=== PATIENT | female | born 1975 | race Two or more races ===

== ENCOUNTER 2024-11-12 16:00 | Outpatient (REF) | payer MEDICAID, SELFPAY ==
--- OUTSIDE RECORDS SUMMARY | 2024-11-12 16:33 | XMS_ITS | Clinical Summary ---
Author Organization [employer] Address [address] [place] [address] [facility] [place] [address] Care Team Providers Care Engineering Specialist Name Role Phone Porsha Aavlos FARM MECHANIC APPRENTICE Primary Care Provider [phone] Allergies No known active allergies Medications No known medications Active Problems Problem Noted Date Diagnosed Date Adult wellness visit 11/12/2024 Astigmatism with presbyopia, bilateral Pinguecula, bilateral 08/06/2023 Encounters Date Type Department Care Team Description 11/12/2024 2:45 PM EDT Office Visit [facility] MEDICINE [address] [place] [phone] Porsha Avalos FNP Adult wellness visit (Primary Dx); Encounter for immunization 11/12/2024 Travel 11/11/2024 Telephone [facility] MEDICINE [address] [place] [phone] Porsha Avalos FNP CHART PREP 10/30/2024 Patient Outreach [facility] [address] [place] [address] Porsha Avalos FNP 10/30/2024 Patient Outreach [facility] [address] [place], [place] [phone] Marley Palomares MD Pre-visit Planning (SDOH unable to reach [facility]) 10/22/2024 Telephone [facility] MEDICINE [address] [place] [phone] Cooper Morejon MD 10/10/2024 3:00 PM EDT Office Visit [facility] ADULT DENTAL [address] [place] [phone] Sandoval-Forrest, Neema, DDS Dental caries (Primary Dx) 09/12/2024 3:00 PM EST Office Visit [facility] ADULT DENTAL [address] [place] [address] Sandoval-Forrest, Neema, DDS Fractured dental restorative material with loss of material (Primary Dx) 09/10/2024 3:00 PM EST Office Visit [facility] ADULT DENTAL [address] [place] [address] Sandoval-Forrest, Neema, DDS Dental caries (Primary Dx) 09/02/2024 2:30 PM EST Office Visit [facility] ADULT DENTAL [address] [place] [address] Lubna Aguilar 08/15/2024 9:30 AM EST Office Visit [facility] ADULT DENTAL [address] [place] [address] Sandoval-Forrest, Neema, DDS Dental caries (Primary Dx); Tipped teeth from Last 3 Months Immunizations Name Administration Dates Next Due Influenza injectable quadrivalent preservative f ree 05/27/2022 Pfizer Covid-19 Vaccine 12+ Bivalent 08/14/2021 Tdap 11/12/2024 Family History Medical History Relation Name Comments Hypertension Father Chorea Mother Relation Name Status Comments Father Mother Social History Tobacco Use Types Packs/Day Years Used Date Smoking Tobacco: Never Passive Smoke Exposure: Never Smokeless Tobacco: Never Tobacco Cessation:Counseling Given: Not Answered Alcohol Use Standard Drinks/Week Comments Not Currently 0 (1 standard drink = 0.6 oz pur e alcohol) Depression Answer Date Recorded Patient Health Questionnaire-9 Score 3 11/12/2024 Patient Health Questionnaire-9 Score 3 11/12/2024 Last PHQ-9: Questionnaire Data Not on file 0 11/12/2024 Housing Stability Answer Date Recorded What is your housing situation today? I have stuart kim 11/12/[address] you li ve. Do you have problems with any of the following? None of the above 11/12/2024 Food Insecurity Answer Date Recorded Within the past 12 months, y ou worried that your food would run out before you got money to buy more: Never True 11/12/2024 Within the past 12 months,th e food you bought just didn't last and you didn't have enough money to get more: Never True 01/2025 Transportation Answer Date Recorded In the past 12 months, has l ack of transportation kept you from medical appts, meetings, work or from getting things needed for daily living? No 11/12/2024 Utilities Answer Date Recorded In the past 12 months, has t he electric, gas, oil or water company threatened to shut off services in your home? No 11/12/2024 Depression Answer Date Recorded Patient Health Questionnaire-2 Score 0 11/12/2024 Internet Access Answer Date Recorded Internet Access Q1 Yes 11/12/2024 Internet Access Q2 Not on file 11/12/2024 Comments Unknown Sex and Gender Information Value Date Recorded Sex Assigned at Female 08/14/2023 8:42 AM EST Legal Sex Female 8:37 AM EST Gender Identity Female 08/14/2023 8:42 AM EST Sexual Orientation Straight 08/14/2023 8: 42 AM EST Last Filed Vital Signs Vital Sign Reading Time Taken Comments Blood Pressure 129/82 11/12/2024 2:51 PM EDT Pulse 67 11/12/2024 2:51 PM EDT Temperature 36.6 ??C (97.8 ??F) 11/12/2024 2:51 PM ED T Respiratory Rate 20 11/12/2024 2:51 PM EDT Oxygen Saturation 98% 11/12/2024 2:51 PM EDT Inhaled Oxygen Concentration - - Weight 71 kg (156 lb 8 oz) 11/12/2024 2:51 PM ED T Height 160.9 cm (5' 3.34 ) 11/12/2024 2:51 PM ED T Body Mass Index 27.43 11/12/2024 2:51 PM EDT Plan of Treatment Upcoming Encounters Date Type Department Care Team (Late st Contact Info) Description 11/14/2024 3:00 PM EDT Office Visit [facility] ADULT DENTAL [address] [place], [place] [phone] Neema Fountain, LETICIAS [address] [place] [address] Health Maintenance Due Date Last Done Comments CT Colonography 1976 Colonoscopy 1976 FIT DNA/Cologuard 1976 HIV Screening 1976 Sigmoidoscopy 1976 Family Planning (PISQ) 1991 Hepatitis C Screening 1994 Hepatitis B Vaccines (1 of 3 - 19+ 3-dose series) 1995 Pap Smear 1997 Cervical Cancer Screening 2006 HPV/Cotest 2006 Colorectal Cancer Screening 08/10/2023 FIT 08/10/2023 08/10/2022 FOBT 08/10/2023 08/10/2022 COVID-19 Vaccine (4 - 2023-2 5 season) 2024 05/27/2022, 08/14/2021, 12/23/2020 Influenza Vaccine (#1) 2024 05/27/2022 Dental Oral Exam 02/13/2025 08/15/2024 Dental Prophylaxis 03/03/2025 09/02/2024 Dental X-Ray: Bitewings 08/16/2025 08/15/19 25, 08/14/2023 Alcohol/Substance Use Screening 11/12/2025 11/12/2024 Depression Screening 11/12/2025 11/12/2024, 11/12/2024 SDOH Screening 11/12/2025 11/12/2024 Tobacco Screening 11/12/2025 11/12/2024 Mammogram 01/17/2026 01/18/2024 Zoster Vaccines (1 of 2) 2026 Dental X-Ray: Full Mouth 08/16/2027 08/15/2024 DTaP/Tdap/Td Vaccines (2 - T d or Tdap) 11/12/2034 11/12/2024 RSV Patients and Patients Aged 60 years or older (1 - 1-dose 75+ series) 2051 HIB Vaccines Aged Out No longer eligi ble based on patient's age to complete this topic HPV Vaccines Aged Out No longer eligi ble based on patient's age to complete this topic Hepatitis A Vaccines Aged Out No long er eligible based on patient's age to complete this topic IPV Vaccines Aged Out No longer eligi ble based on patient's age to complete this topic Meningococcal Vaccine Aged Out No kim saturnino eligible based on patient's age to complete this topic Pneumococcal Vaccine: Pediatrics (0 to 5 Years) and At-Risk Patients (6 to 49) Years) Aged Out No longer eligible b ased on patient's age to complete this topic RSV under 20 months Aged Out No longe r eligible based on patient's age to complete this topic Rotavirus Vaccines Aged Out No longer eligible based on patient's age to complete this topic Procedures Procedure Name Priority Date/Time Associated Diagnosis Comments CASE PRESENTATION, DETAILED AND EXTENSIVE TREATMENT PLANNING Routine 10/10/2024 3:00 PM EDT Dental caries 13 MOD RESIN-BASED COMPOSITE - 3 SURF, POSTERIOR Routine 10/10/2024 3:00 PM EDT Dental caries 12 DO RESIN-BASED COMPOSITE - 2 SURF, POSTERIOR Routine 10/10/2024 3:00 PM EDT Dental caries CASE PRESENTATION, DETAILED AND EXTENSIVE TREATMENT PLANNING Routine 09/12/2024 3:00 PM EST Fractured dental restorative material with loss of material 8 DIFL RESIN-BASED COMPOSITE - 4 OR MORE SURFACES (ANTERIOR) Routine 09/12/2024 3:00 PM EST Fractured dental restorative material with loss of material CASE PRESENTATION, DETAILED AND EXTENSIVE TREATMENT PLANNING Routine 09/10/2024 3:00 PM EST 28 MO RESIN-BASED COMPOSITE - 2 SURF, POSTERIOR Routine 09/10/2024 3:00 PM EST 29 DO RESIN-BASED COMPOSITE - 2 SURF, POSTERIOR Routine 09/10/2024 3:00 PM EST CASE PRESENTATION, DETAILED AND EXTENSIVE TREATMENT PLANNING Routine 09/02/2024 2:30 PM EST ORAL HYGIENE INSTRUCTIONS Routine 2024 2:30 PM EST COMPREHENSIVE PERIODONTAL EVALUATION - NEW OR ESTABLISHED PATIENT Routine 09/02/2024 2:30 PM EST PROPHYLAXIS - ADULT Routine 09/02/2024 2 :30 PM EST INTRAORAL - COMPLETE SERIES OF RADIOGRAPHIC IMAGES Routine 08/15/2024 9:30 AM EST Dental caries COMPREHENSIVE ORAL EVALUATION - NEW OR ESTABLISHED PATIENT Routine 08/15/2024 9:30 AM EST Dental caries 30 DO COMPOSITE FILLING Routine 08/15/19 12:00 AM EST 1 EXTRACTION Routine 08/15/2024 12:00 AM EST 19 PFM CROWN Routine 08/15/2024 12:00 AM EST 19 ENDODONTIC ENDOSSEOUS IMPLANT Routine 08/15/2024 12:00 AM EST 9 DL COMPOSITE FILLING Routine 12:00 AM EST 8 DL COMPOSITE FILLING Routine 02/07/202 5 12:00 AM EST 7 ML COMPOSITE FILLING Routine 5 12:00 AM EST 4 PFM CROWN Routine 08/15/2024 12:00 AM EST 5 EXTRACTION Routine 08/15/2024 12:00 AM EST 4 ENDODONTIC ENDOSSEOUS IMPLANT Routine 08/15/2024 12:00 AM EST from Last 3 Months Insurance [facility] LIMITED HS FULL DENTAL-[facility] MEDICAID LIMITED ADULT DENTAL - HSN FULL (MEDICAID) Care Teams Engineering Specialist Relationship Specialty Start Date End Date Porsha Avalos FNP [address] [place] [phone] PCP - General Family Medicine 11/12/24
--- OUTSIDE RECORDS SUMMARY | 2024-11-12 16:33 | XMS_ITS | Encounter Summary ---
Author Organization [employer] Address [address] [facility] 7t [place] [address] Care Team Providers Care Guest Attendant Name Role Phone Unavailable Primary Care Provider Unavailabl e Reason for Visit * Reason Onset Date Comments CHART PREP 11/11/2024 Encounter Details Date Type Department Care Team ([facility] st Contact Info) Description 11/11/[address] [facility] MEDICINE [address] [place] [address] Porsha Avalos FNP [address] [place] [address] CHART PREP Social History Tobacco Use Types Packs/Day Years Used Date Smoking Tobacco: Never Smokeless Tobacco: Never Alcohol Use Standard Drinks/Week Comments Not Currently [...] Orientation Straight 08/14/2023 8: 42 AM EST documented as of this encounter Miscellaneous Notes * Telephone Encounter - Felecia Álvarez [place] - 11/11/2024 10:28 AM EDT Chart Prep Labs: not applicable Images: not applicable Referrals: not applicable Vaccines due: Tdap and Hep B Screenings: colonoscopy, pap smear, and LMP Overdue care gaps: SBIRT, SDOH, PHQ-9, NEDRA-7, Oral health screening, and Disability screen documented in this encounter Plan of Treatment Upcoming Encounters Date Type Department Care Team (Late st Contact Info) Description 11/14/2024 3:00 PM EDT Office Visit [facility] ADULT DENTAL [address] [place] [address] Neema Fountain DDS [address] [place] [address] documented as of this encounter Visit Diagnoses Not on filedocumented in this encounter
--- OUTSIDE RECORDS SUMMARY | 2024-11-12 16:33 | XMS_ITS | Encounter Summary ---
Author Organization [employer] Address [address] [facility] 7t [place] [address] Care Team Providers Care Production Line Solderer Name Role Phone Porsha Avalos Primary Care Provider [phone] Reason for Referral * Consultation (Routine) - Authorized Specialty Diagnoses / Procedures Referred By Angie woodward Referred To Contact Optometry Diagnoses Adult wellness visit Porsha Avalos FNP [address] [place] [address] Phone: tel: fax: [facility] OPTOMETRY [address] [place] [address] Phone: tel: fax: Referral ID Status Reason Start Date Expiration Date Visits Requested Visits Authorized [id number] Authorized Consult and Treat 11/12/2024 11/12/2025 1 1 * Imaging (Routine) - Authorized Specialty Diagnoses / Procedures Referred By Angie woodward Referred To Contact Radiology Diagnoses Adult wellness visit Procedures BI Mammogram Screening Tomosynthesis Bilateral Porsha Avalos FNP [address] [place] [address] Phone: tel: fax: [facility] [address] [place], [place] Phone: tel: fax: Referral ID Status Reason Start Date Expiration Date V isits Requested Visits Authorized [id number] Authorized 11/12/2024 11/12/2025 1 1 Encounter Details Date Type Department Care Team (Late st Contact Info) Description 11/12/2024 2:45 PM EDT Office Visit [facility] MEDICINE [address] [place] [address] Porsha Avalos FNP [address] [place] [address] Adult wellness visit (Primary Dx); Encounter for immunization Social History Tobacco Use Types Packs/Day Years [...] AM EST documented as of this encounter Last Filed Vital Signs Vital Sign Reading [...] Mass Index 27.43 11/12/2024 2:51 PM EDT documented in this encounter Progress Notes * ONEIDA Chowdary - 11/12/2024 2:45 PM EDT Subjective: Nina Lopez is a 49 y.o. female who presents to the office for a transfer patient visit. Current concerns: None Patient Active Problem List Diagnosis Astigmatism with presbyopia, bilateral Pinguecula, bilateral History reviewed. No pertinent surgical history. Family History Problem Relation Name Age of Onset Chorea Mother Hypertension Father Social History Living situation: Lives with daughter in a house Safety:No fire arms in the home. Working smoke and fire alarm. Reports home and environment safe Employment/Education: Temporary employed in [place] [employer] Diet/exercise: Eats variety of food including fruits and vegetables. No routine exercise Substance use: Denies use of alcohol, drugs or cigarette Sexual activity: Yes, same partner x 25. Denies IPV Dental: Has a dental home Vision: Referral to [facility] vision Last menstrual period: 10/27/2024. Regular period no inter period bleeding Children: 1 Mammogram: Referral Pap smear: Reports Two years ago and normal Mental health: Denies SI, harming self or others No Known Allergies No current outpatient medications on file. No current facility-administered medications for this visit. Health Maintenance Topic Date Due Depression Screening Never done SDOH Screening Never done HIV Screening Never done Family Planning (PISQ) Never done Hepatitis C Screening Never done DTaP/Tdap/Td Vaccines (1 - Tdap) Never done Hepatitis B Vaccines (1 of 3 - 19+ 3-dose series) Never done Cervical Cancer Screening Never done Colorectal Cancer Screening 08/10/2023 Influenza Vaccine (1) 03/09/2024 COVID-19 Vaccine ( season) 2024 Tobacco Screening 11/12/2025 Alcohol/Substance Use Screening 11/12/2025 Mammogram 01/17/2026 Zoster Vaccines (1 of 2) 2026 RSV Patients and Patients Aged 60 years or older (1 - 1-dose 75+ series) 2051 RSV under 20 months Aged Out HIB Vaccines Aged Out IPV Vaccines Aged Out Hepatitis A Vaccines Aged Out Meningococcal Vaccine Aged Out Rotavirus Vaccines Aged Out HPV Vaccines Aged Out Pneumococcal Vaccine: Pediatrics (0 to 5 Years) and At-Risk Patients (6 to 49) Years) Aged Out Review of Systems Constitutional: Negative for activity change, appetite change, fatigue and fever. HENT: Negative for congestion, ear discharge, ear pain, rhinorrhea and sore throat. Eyes: Negative for discharge, redness and itching. Respiratory: Negative for cough, shortness of breath and wheezing. Cardiovascular: Negative for chest pain. Gastrointestinal: Negative for abdominal pain, blood in stool, constipation, diarrhea, nausea and vomiting. Endocrine: Negative for polydipsia and polyuria. Genitourinary: Negative for decreased urine volume, difficulty urinating, dyspareunia, hematuria and menstrual problem. Musculoskeletal: Negative for arthralgias, gait problem and joint swelling. Skin: Negative for rash. Allergic/Immunologic: Negative for environmental allergies and food allergies. Neurological: Negative for dizziness, weakness and headaches. Hematological: Does not bruise/bleed easily. Psychiatric/Behavioral: Negative for behavioral problems, sleep disturbance and suicidal ideas. Visit Vitals BP 129/82 (BP Location: Left arm, Patient Position: Sitting, BP Cuff Size: Adult) Pulse 67 Temp 97.8 ??F (36.6 ??C) (Temporal) Resp 20 Ht 5' 3.34 (1.609 m) Wt 156 lb 8 oz (71 kg) LMP 10/27/2024 (Exact Date) SpO2 98% BMI 27.43 kg/m?? Smoking Status Never BSA 1.78 m?? Physical Exam Constitutional: Appearance: Normal appearance. HENT: Head: Normocephalic and atraumatic. Right Ear: Tympanic membrane, ear canal and external ear normal. Left Ear: Tympanic membrane, ear canal and external ear normal. Nose: Nose normal. No congestion. Mouth/Throat: Mouth: Mucous membranes are moist. Pharynx: Oropharynx is clear. Eyes: Extraocular Movements: Extraocular movements intact. Pupils: Pupils are equal, round, and reactive to light. Cardiovascular: Rate and Rhythm: Normal rate and regular rhythm. Pulses: Normal pulses. Heart sounds: Normal heart sounds. No murmur heard. Pulmonary: Effort: Pulmonary effort is normal. Breath sounds: Normal breath sounds. No wheezing. Chest: Chest wall: No tenderness. Abdominal: General: Abdomen is flat. Bowel sounds are normal. Palpations: Abdomen is soft. Tenderness: There is no guarding or rebound. Musculoskeletal: General: Normal range of motion. Cervical back: Normal range of motion. Right lower leg: No edema. Left lower leg: No edema. Skin: General: Skin is warm and dry. Capillary Refill: Capillary refill takes less than 2 seconds. Findings: No bruising. Neurological: General: No focal deficit present. Mental Status: She is alert and oriented to person, place, and time. Cranial Nerves: No cranial nerve deficit. Sensory: No sensory deficit. Psychiatric: Mood and Affect: Mood normal. Behavior: Behavior normal. Thought Content: Thought content normal. Judgment: Judgment normal. Problem List Items Addressed This Visit Adult wellness visit - Primary Well nourished, alert and cooperative , good historian, and answering questions appropriately Plan Blood work order to screen for anemia, electrolytes, elevated blood sugar and lipid Ordered preventing screening for STIs No family hx of colon CA, colonoscopy / stool based tests deferred to 45 yrs Diet and exercise review Hep B lab work to determine presence of antigens or antibody Lifestyle and behavioral health assessment Patient education on vaccination and importance getting annual vaccines Follow up in one year or prn Relevant Orders CBC auto differential Hepatitis B Core Antibody, Total Hepatitis B surface antigen, EIA Hepatitis B Surface Antibody, Qualitative Hepatitis C Antibody with Reflex to HCV, RNA, Quantitative, Real-Time PCR Chlamydia/N. Gonorrhoeae RNA, TMA, Urogenitial HIV-1/2 Antigen and Antibodies, Fourth Generation, with Reflexes Comprehensive Metabolic Panel Lipid Panel, Standard Encounter for immunization Due for Tdap discussed with patient and administered Relevant Orders Tdap vaccine [facility] LUNCHROOM MOTHER Attestation LUNCHROOM MOTHER Resident Attestation: Patient was seen and evaluated by Porsha MOHAMUD, in collaboration with Yajaira Anthony MD who has reviewed my assessment and plan. I, Yajaira Anthony MD, have reviewed the resident's note and agree with the assessment & plan ofcare as documented above. Visit Conducted in: Kazakh Translation by: Provided by [employer] Phone Service ID # [id number] documented in this encounter Plan of Treatment Upcoming Encounters Date Type Department Care Team (Late st Contact Info) Description 11/14/2024 3:00 PM EDT Office Visit [facility] ADULT DENTAL [address] [place], [place] [phone] Sandoval-Forrest, Neema, DDS [address] [place], [place] [phone] Scheduled Orders Name Type Priority Associated Diagnoses Orde r Schedule CBC auto differential Lab Routine Adult wellness visit Expected: 11/12/2024 (Approximate), Expires: 11/11/2025 Hepatitis B Core Antibody, Total Lab Routine Adult wellness visit Expected: 11/12/2024 (Approximate), Expires: 11/11/2025 Hepatitis B surface antigen, EIA Lab Routine Adult wellness visit Expected: 11/12/2024 (Approximate), Expires: 11/11/2025 Hepatitis B Surface Antibody, Qualitative Lab Routine Adult wellness visit Expected: 11/12/2024 (Approximate), Expires: 11/11/2025 Hepatitis C Antibody with Reflex to HCV, RNA, Quantitative, Real-Time PCR Lab Routine Adult wellness visit Expected: 11/12/2024, Expires: 11/11/2025 Chlamydia/N. Gonorrhoeae RNA, TMA, Urogenitial Microbiology Routine Adult wellness visit Ordered: 11/12/2024 HIV-1/2 Antigen and Antibodies, Fourth Generation, with Reflexes Lab Routine Adult wellness visit Expected: 11/12/2024 (Approximate), Expires: 11/11/2025 Comprehensive Metabolic Panel Lab Routine Adult wellness visit Expected: 11/12/2024 (Approximate), Expires: 11/11/2025 Lipid Panel, Standard Lab Routine Adult wellness visit Expected: 11/12/2024 (Approximate), Expires: 11/11/2025 BI Mammogram Screening Tomosynthesis Bilateral Imaging Routine Adult wellness visit Expected: 11/12/2024 (Approximate), Expires: 01/12/2026 Scheduled Referrals Name Type Priority Associated Diagnoses Orde r Schedule Referral to [facility] Outpatient Referral Routine Adult wellness visit Expected: 11/12/2024 (Approximate), Expires: 11/12/2025 documented as of this encounter Visit Diagnoses Diagnosis Adult wellness visit- Primary Encounter for immunization documented in this encounter Additional Health Concerns Assessment Noted Time PHQ-9 Depression Total Score: 3 11/13/19 25 3:52 PM EDT documented as of this encounter Care Teams Production Line Solderer Relationship Specialty Start Date End Date Prosha Avalos FNP [address] [place] [phone] PCP - General Family Medicine 11/12/24 documented as of this encounter
--- OUTSIDE RECORDS SUMMARY | 2024-11-12 16:33 | XMS_ITS | Encounter Summary ---
Author Organization [employer] Address [address] [facility] [address]t [place] [address] Care Team Providers Care Accelerator Operator Name Role Phone Porsha Avalos APRON TRIMMER Primary Care Provider Encounter Details Date Type Department Care Team (Latest Contact Info) Description 11/12/2024 Travel Social History Tobacco Use Types Packs/Day Years Used Date Smoking Tobacco: Never Passive Smoke Exposure: Never Smokeless Tobacco: Never Alcohol Use Standard [...] AM EST documented as of this encounter Plan of Treatment Upcoming Encounters Date Type Department Care Team (Late st Contact Info) Description 11/14/2024 3:00 PM EDT Office Visit [facility] ADULT DENTAL [address] [place] [address] Neema Fountain DDS [address] [place] [address] documented as of this encounter Visit Diagnoses Not on filedocumented in this encounter Additional Health Concerns Assessment Noted Time PHQ-9 Depression Total Score: 3 11/13/19 25 3:52 PM EDT documented as of this encounter Care Teams Accelerator Operator Relationship Specialty Start Date End Date Porsha Avalos FNP [address] [place] [address] PCP - General Family Medicine 11/12/24 documented as of this encounter
[2024-11-12 18:07] LABS: MANUAL DIFF FLAG NO
[2024-11-12 18:19] LABS: Basophils Absolute Auto 0.1 X10*3/uL (0.0-0.2); Basophils Percent Auto 0.6 % (0-2); Eosinophils Absolute Auto 0.1 X10*3/uL (0.0-0.4); Eosinophils Percent Auto 0.9 % (0-4); Hematocrit 35.3 % (37.0-47.0); Hemoglobin 11.5 g/dl (12.0-16.0); Imm Gran Abs Auto 0.04 X10*3/uL (0.00-0.03); Imm Gran Pct Auto 0.4 % (0.0-0.4); Lymphocytes Absolute Auto 2.9 X10*3/uL (1.2-4.9); Lymphocytes Percent Auto 29.2 % (20-40); Mean Corpuscular HGB Conc 32.6 g/dl (31.0-35.0); Mean Corpuscular Hemoglobin 28.7 pg (27.0-33.0); Monocytes Absolute Auto 0.6 X10*3/uL (0.1-1.2); Monocytes Percent Auto 5.7 % (2-11); Neutrophils Absolute Auto 6.3 x10*3/uL (2.0-8.3); Neutrophils Percent Auto 63.2 % (45-73); Platelet Count 319 X10*3/uL (160-400); Red Blood Count 4.01 X10*6/uL (4.20-5.50); Red Cell Distribution Width 12.7 % (11.0-16.0)
[2024-11-12 18:33] LABS: Alanine Aminotransferase 16 U/L (0-31); Albumin Level 4.4 g/dL (3.5-5.0); Alkaline Phosphatase 55 U/L (39-117); Anion Gap 12 (12-20); Aspartate Amino Transferase 22 U/L (5-31); Bilirubin Total 0.4 mg/dL (0.0-1.0); Blood Urea Nitrogen 14 mg/dL (9-16); Calcium 9.7 mg/dL (8.4-10.2); Carbon Dioxide 24 mmol/L (22-29); Chloride 106 mmol/L (96-108); Cholesterol 186 mg/dL (<200); Estimated Glomerular Filt Rate > 60; Glucose Random 96 mg/dL (60-115); HDL Cholesterol 51 mg/dL (>40); LDL Cholesterol Calculated 114 mg/dL (<100); Sodium 138 mmol/L (135-145); Total Protein 7.3 g/dL (6.5-8.0); Triglycerides 107 mg/dL (<150)
[2024-11-12 22:52] LABS: CT PCR NOT DETECTED (Not Detect.); NG PCR NOT DETECTED (Not Detect.)
[2024-11-13 04:40] LABS: HBS Num1 > 1000.00 mIU/mL (0-7.99); HBc Num1 0.08 S/CO (0.00-0.79); HBsAGNum1 0.29 S/CO (0.00-0.99); HIV AB/AG Nonreactive (Nonreactive); HIV Num 1 0.05 S/CO (0.00-0.99); Hepatitis B Core Antibody Nonreactive (Nonreactive); Hepatitis B Surface Antigen Negative (Negative); ~HepC Num1 0.15 S/CO (0.00-0.79); ~Hepatitis B Surface Antibody REACTIVE (Nonreactive); ~Hepatitis C Antibody Nonreactive (Nonreactive)
== END 2024-11-12 16:01 | disposition home or self-care (01) ==
LOC: HO.HHCL 16:00
PROVIDERS: Visit Provider Nurse Practitioner Family
DX: Z00.00 Encounter for general adult medical examination without abnormal findings (principal); Z11.4 Encounter for screening for human immunodeficiency virus [HIV]; Z11.59 Encounter for screening for other viral diseases; Z13.220 Encounter for screening for lipoid disorders
CPT/HCPCS: 36415; 80053; 80061; 85025; 86704; 86706; 86803; 87340; 87389; 87491; 87591

== ENCOUNTER 2025-01-08 14:57 | Outpatient (REF) | payer MEDICAID, SELFPAY ==
--- OUTSIDE RECORDS SUMMARY | 2025-01-08 15:01 | XMS_ITS | Clinical Summary ---
Author Organization [facility] Address [address] [place] [address] 7 [place] [address] Care Team Providers Care Doctor Of Chiropractic Name Role Phone Porsha Avalos Primary Care Provider [phone] Allergies No known active allergies Medications No known medications Active Problems Problem Noted Date Diagnosed Date Adult wellness visit 11/12/2024 Astigmatism with presbyopia, bilateral Pinguecula, bilateral 08/06/2023 Encounters Date Type Department Care Team Description 12/17/2024 3:00 PM EDT Office Visit [facility] [address] [place] [phone] Sandoval-Forrest, Neema, DDS Dental caries (Primary Dx) 11/12/2024 2:45 PM EDT Office Visit [facility] [address] [place] [phone] Porsha Avalos FNP Adult wellness visit (Primary Dx); Encounter for immunization 11/12/2024 Travel 11/11/2024 Telephone [facility] [address] [place] [phone] Porsha Avalos FNP CHART PREP 10/30/2024 Patient Outreach [facility] [address] [place], [place] [phone] Porsha Avalos FNP 10/30/2024 Patient Outreach [facility] [address] [place], [place] [phone] Marley Palomares MD Pre-visit Planning (SDOH unable to reach [facility]) 10/22/2024 Telephone [facility] [address] [place] [address] [phone] Cooper oMrejon MD 10/10/2024 3:00 PM EDT Office Visit [facility] [address] [place] [phone] Neema Fountain DDS Dental caries (Primary Dx) from Last 3 Months Immunizations Immunization Administration Dates Next Due Influenza injectable quadrivalent [...] Sign Reading Time Taken Comments Blood Pressure 122/90 12/17/2024 3:05 PM EDT Pulse 67 11/12/2024 2:51 PM EDT Temperature 36.6 C (97.8 F) 11/12/2024 2:51 PM EDT Respiratory Rate 20 11/12/2024 2:51 PM EDT [...] Care Team (Late st Contact Info) Description 02/02/2025 3:00 PM EDT Office Visit [facility] [address] [place] [address] Neema Fountain, DDS [address] [place] [address] 02/18/2025 3:30 PM EDT Office Visit [facility] [address] [place] [address] TarkaCitlali, OD [address] [place] [address] Health Maintenance Due Date Last Done Comments CT Colonography 1976 Colonoscopy 1976 FIT DNA/Cologuard 1976 Sigmoidoscopy 1976 Family Planning (PISQ) 1991 Hepatitis B Vaccines (1 of 3 - 19+ 3-dose series) 1995 Pap Smear 1997 Cervical Cancer Screening 2006 HPV/Cotest 2006 Colorectal Cancer Screening 08/10/2023 FIT 08/10/2023 08/10/2022 FOBT 08/10/2023 08/10/2022 COVID-19 Vaccine (4 - 2023-2 5 season) 2024 05/27/2022, 08/14/2021, 12/23/2020 Dental Oral Exam 02/13/2025 08/15/2024 Dental Prophylaxis 03/03/2025 09/02/2024 Dental X-Ray: Bitewings 08/16/2025 08/15/19, 08/14/2023 Alcohol/Substance Use Screening 11/12/2025 11/12/2024 Depression Screening 11/12/2025 11/12/2024, 11/12/2024 Disability Screening 11/12/2025 11/12/2024 SDOH Screening 11/12/2025 11/12/2024 Tobacco Screening 12/17/2025 12/17/2024 Mammogram 01/17/2026 01/18/2024 Zoster Vaccines (1 of 2) 2026 Dental X-Ray: Full Mouth 08/16/2027 08/15/2024 DTaP/Tdap/Td Vaccines (2 - T d or Tdap) 11/12/2034 11/12/2024 RSV Patients and Patients Aged 60 years or older (1 - 1-dose 75+ series) 2051 Influenza Vaccine Completed 09/19/2024, 05/27/2022 HIV Screening Completed 11/12/2024 Hepatitis C Screening Completed 11/12/2024 HIB Vaccines Aged Out No longer eligi [...] patient's age to complete this topic Meningococcal B Vaccine Aged Out No l onger eligible based on patient's age to complete this topic Meningococcal Vaccine Aged Out No kim saturnino eligible based on patient's age to complete this topic Pneumococcal Vaccine: Pediatrics (0 to 5 Years) and At-Risk Patients (6 to 49) Years Aged Out No longer eligible b ased on patient's age to complete this topic RSV under 20 months Aged Out No longe r eligible based on patient's age to complete this topic Rotavirus Vaccines Aged Out No longer eligible based on patient's age to complete this topic Procedures Procedure Name Priority Date/Time Associated Diagnosis Comments CASE PRESENTATION, DETAILED AND EXTENSIVE TREATMENT PLANNING Routine 12/17/2024 3:00 PM EDT Dental caries 20 DO RESIN-BASED COMPOSITE - 2 SURF, POSTERIOR Routine 12/17/2024 3:00 PM EDT Dental caries 18 COURTNEY RESIN-BASED COMPOSITE - 2 SURF, POSTERIOR Routine 12/17/2024 3:00 PM EDT Dental caries LIPID PANEL, STANDARD Routine 11/12/2024 4:14 PM EDT Adult wellness visit COMPREHENSIVE METABOLIC PANEL Routine 11/12/2024 4:14 PM EDT Adult wellness visit HIV 1/2 ANTIGEN/ANTIBODY, FOURTH GENERATION W/RFL Routine 11/12/2024 4:14 PM EDT Adult wellness visit HEPATITIS C AB W/REFL TO HCV RNA, QN, PCR Routine 11/12/2024 4:14 PM EDT Adult wellness visit HEPATITIS B SURFACE ANTIBODY, QUALITATIVE Routine 11/12/2024 4:14 PM EDT Adult wellness visit HEPATITIS B SURFACE ANTIGEN, EIA Routine 11/12/2024 4:14 PM EDT Adult wellness visit HEPATITIS B CORE AB TOTAL Routine 11/12/2024 4:14 PM EDT Adult wellness visit CBC WITH AUTO DIFFERENTIAL Routine 11/12/2024 4:14 PM EDT Adult wellness visit CHLAMYDIA/N. GONORRHOEAE RNA, TMA, UROGENITAL Routine 11/12/2024 4:14 PM EDT Adult wellness visit CASE PRESENTATION, DETAILED AND EXTENSIVE TREATMENT PLANNING Routine 10/10/2024 3:00 PM EDT Dental caries 13 MOD RESIN-BASED COMPOSITE - 3 SURF, POSTERIOR Routine 10/10/2024 3:00 PM EDT Dental caries 12 DO RESIN-BASED COMPOSITE - 2 SURF, POSTERIOR Routine 10/10/2024 3:00 PM EDT Dental caries PROPHYLAXIS - ADULT Routine 09/02/2024 2 :30 PM EST INTRAORAL - COMPLETE SERIES OF RADIOGRAPHIC IMAGES Routine 08/15/2024 9:30 AM EST Dental caries COMPREHENSIVE ORAL EVALUATION - NEW OR ESTABLISHED PATIENT Routine 08/15/2024 9:30 AM EST Dental caries from Last 3 Months or Most Recently Relevant to Health Maintenance Results * (ABNORMAL) CBC auto differential (11/12/2024 4:14 PM EDT) White Blood Count 10.0 4.8 - 10.8 X10*3/uL [facility] Red Blood Count 4.01(L) 4.20 - 5.50 X10*6/uL [facility] Hemoglobin 11.5(L) 12.0 - 16.0 g/dl [facility] Hematocrit 35.3(L) 37.0 - 47.0 % [facility] Mean Corpuscular Volume 88.0 80.0 - 98.0 fL [facility] Mean Corpuscular Hemoglobin 28.7 27.0 - 33.0 pg [facility] Mean Corpuscular HGB Conc 32.6 31.0 - 35.0 g/dl [facility] Red Cell Distribution Width 12.7 11.0 - 16.0 % [facility] Platelet Count 319 160 - 400 X10*3/uL [facility] Mean Platelet Volume 11.0 9.4 - 12.3 fL [facility] Neutrophils Percent Auto 63.2 45 - 73 % [facility] Imm Gran Pct Auto 0.4 0.0 - 0.4 % [facility] Lymphocytes Percent Auto 29.2 20 - 40 % [facility] Monocytes Percent Auto 5.7 2 - 11 % [facility] Eosinophils Percent Auto 0.9 0 - 4 % [facility] Basophils Percent Auto 0.6 0 - 2 % [facility] NRBC Pct Auto 0.0 0.0 - 0.2 /100WBC [facility] Neutrophils Absolute Auto 6.3 2.0 - 8.3 x10*3/uL [facility] Imm Gran Abs Auto 0.04(H) 0.00 - 0.03 X10*3/uL [facility] Lymphocytes Absolute Auto 2.9 1.2 - 4.9 X10*3/uL [facility] Monocytes Absolute Auto 0.6 0.1 - 1.2 X10*3/uL [facility] Eosinophils Absolute Auto 0.1 0.0 - 0.4 X10*3/uL [facility] Basophils Absolute Auto 0.1 0.0 - 0.2 X10*3/uL [facility] NRBC Abs Auto 0.000 0.0 - 0.012 X10*3/uL [facility] Blood Venous blood specimen / Unknown 11/12/2024 4:14 PM EDT 11/12/2024 6:06 PM EDT [facility] Final Res ult Performing Organization Address [facility] Co de Phone Number [facility] [address] [place] [phone] * Hepatitis C Antibody with Reflex to HCV, RNA, Quantitative, Real-Time PCR (11/12/2024 4:14 PM EDT) [facility] Hepatitis C Antibody Nonreactive Nonreactive [facility] Comment:Antibodies to HCV no t detected; does not exclude early acuteHCV infection. Blood Venous blood specimen / Unknown 11/12/2024 4:14 PM EDT 11/12/2024 6:06 PM EDT [facility] Final Res ult Performing Organization Address [facility] de Phone Number [facility] [address] [place] [phone] * Chlamydia/N. Gonorrhoeae RNA, TMA, Urogenitial (11/12/2024 4:14 PM EDT) [facility] CT PCR NOT DETECTED Not Detect. [facility] Comment:A not detected test result does not exclude the possibilityof infection because test results can be affected byimproper specimen collection, concurrent antibiotic therapy,or the number of organisms in the specimen which may bebelow the sensitivity of the test. As with many diagnostictests, results from the Xpert CT/NG assay should beinterpreted in conjunction with other laboratory andclinical data available to the clinician.Xpert CT/NG performance has not been evaluated in patientsless than 14 years of age. The assay should not be used forthe evaluationof suspected sexual abuse or for other medico-legalindications. Additional testing is recommended in anycircumstance when false positive or false negative resultscould lead to adverse medical, social or psychologicalconsequences. NG PCR NOT DETECTED Not Detect. [facility] Comment:A not detected test result does not exclude the possibilityof infection because test results can be affected byimproper specimen collection, concurrent antibiotic therapy,or the number of organisms in the specimen which may bebelow the sensitivity of the test. As with many diagnostictests, results from the Xpert CT/NG assay should beinterpreted in conjunction with other laboratory andclinical data available to the clinician.Xpert CT/NG performance has not been evaluated in patientsless than 14 years of age. The assay should not be used forthe evaluationof suspected sexual abuse or for other medico-legalindications. Additional testing is recommended in anycircumstance when false positive or false negative resultscould lead to adverse medical, social or psychologicalconsequences. Urine (Urine, Random) 11/12/2024 4:14 PM EDT 11/12/2024 6:18 PM EDT Narrative [facility] - 11/12/2024 10:52 PM EDT Urine us Porsha [facility] LAB MICROBIOLOGY - GENERAL ORD ERABLES Final Result [facility] [address] [place] [phone] [phone] * Hepatitis B surface antigen, EIA (11/12/2024 4:14 PM EDT) Hepatitis B Surface Ag Negative Negative [facility] Blood Venous blood specimen / Unknown 11/12/2024 4:14 PM EDT 11/12/2024 6:06 PM EDT [facility] Final Res ult Performing Organization Address [facility]/ZIP Co de Phone Number [facility] [address] [place] [phone] * Hepatitis B Core Antibody, Total (11/12/2024 4:14 PM EDT) Hepatitis B Core Antibody Nonreactive Nonreactive [facility] Blood Venous blood specimen / Unknown 11/12/2024 4:14 PM EDT 11/12/2024 6:06 PM EDT [facility] LAB BLOOD ORDERABLES Final Res ult Performing Organization Address [facility] Co de Phone Number [facility] [address] [place] [phone] * HIV-1/2 Antigen and Antibodies, Fourth Generation, with Reflexes (11/12/2024 4:14 PM EDT) Pathologist [facility] HIV AB/AG Nonreactive Nonreactive [facility] Comment:HIV-1 p24 Ag and/or HIV-1/HIV-2 Ab not detected.A test result that is nonreactive does not exclude thepossibility of exposure to or infection with HIV-1 and/orHIV-2. Nonreactive results in this assay for individualswith prior exposure to HIV-1 and/or HIV-2 may be due toantigen and antibody levels that are below the limit ofdetection of this assay.The Blottr HIV Ag/Ab Combo assay result andsupplemental assay results should be interpreted inconjunction with the patient's clinical presentation,history and other laboratory results. If the results areinconsistent with clinical evidence, additional testing issuggested to confirm the result. Blood Venous blood specimen / Unknown 11/12/2024 4:14 PM EDT 11/12/2024 6:06 PM EDT [facility] ORDERABLES Final Res ult Performing Organization Address [facility] Co de Phone Number [facility] [address] [place] [phone] * Hepatitis B Surface Antibody, Qualitative (11/12/2024 4:14 PM EDT) Pathologist [facility] ~Hepatitis B Surface Antibody REACTIVE Nonreactive [facility] Comment:REACTIVE: > 11.99 mI U/mL Blood Venous blood specimen / Unknown 11/12/2024 4:14 PM EDT 11/12/2024 6:06 PM EDT [facility] LAB BLOOD ORDERABLES Final Res ult Performing Organization Address [facility] Co de Phone Number [facility] [address] [place] [phone] * (ABNORMAL) Lipid Panel, Standard (11/12/2024 4:14 PM EDT) [facility] Triglycerides 107 <150 mg/dL [facility] Comment:Desirable Triglyceri de: less than 150 mg/dLBorderline High Triglyceride 150-199 mg/dLHigh Triglyceride: 200-499 mg/dLVery High Triglyceride: greater than or equal to 5OO mg/dL Cholesterol 186 <200 mg/dL [facility] Comment:Desirable Cholestero l: less than 200 mg/dLBorderline High Cholesterol: 200-239 mg/dLHigh Cholesterol: greater than 239 mg/dL LDL Cholesterol Calculated 114(H) <100 mg/dL [facility] Comment:Desirable LDL: less than 100 mg/dLNear Optimal/Above Optimal LDL: 110- 129 mg/dLBorderline High LDL: 130-159 mg/dLHigh LDL: 160-189 mg/dLVery High LDL: greater than or equal to 190 mg/dL HDL Cholesterol 51 >40 mg/dL [facility] Comment:Desirable HDL: great er than 40 mg/dL Note: This HDL assay may give artificially low results in patients with liver disease. Blood Venous blood specimen / Unknown 11/12/2024 4:14 PM EDT 11/12/2024 6:06 PM EDT us Porsha Avalos [employer] LAB BLOOD ORDERABLES Final Res ult [facility] [address] [place] [phone] * Comprehensive Metabolic Panel (11/12/2024 4:14 PM EDT) Sodium 138 135 - 145 mmol/L [facility] Potassium 4.0 3.3 - 5.1 mmol/L [facility] Chloride 106 96 - 108 mmol/L [facility] Carbon Dioxide 24 22 - 29 mmol/L [facility] Anion Gap 12 12 - 20 [facility] Urea Nitrogen (BUN) 14 9 - 16 mg/dL [facility] Creatinine, Serum 0.66 0.5 - 1.4 mg/dL [facility] Estimated Glomerular Filt Rate >60 [facility] Comment:Chronic Kidney Disea se: Estimated GFR < 60 mL/min/[id number] Kidney Disease: Estimated GFR < 15 mL/min/1.73m2 Glucose 96 60 - 115 mg/dL [facility] Calcium 9.7 8.4 - 10.2 mg/dL [facility] Bilirubin, Total 0.4 0.0 - 1.0 mg/dL [facility] Aspartate Amino Transferase 22 5 - 31 U/L [facility] Alanine Aminotransferase 16 0 - 31 U/L [facility] Total Protein 7.3 6.5 - 8.0 g/dL [facility] Albumin Level 4.4 3.5 - 5.0 g/dL [facility] Alkaline Phosphatase 55 39 - 117 U/L [facility] Blood Venous blood specimen / Unknown 11/12/2024 4:14 PM EDT 11/12/2024 6:06 PM EDT us Porshaqasim Esquiveljose [employer] LAB BLOOD ORDERABLES Final Res ult [facility] [address] [place] [phone] from Last 3 Months Insurance [place] FULL (MEDICAID) Care Teams Doctor Of Chiropractic Relationship Specialty Start Date End Date Porsha Avalos FNP [address] [place] [phone] PCP - General Family Medicine 11/12/24
== END 2025-01-08 14:58 | disposition home or self-care (01) ==
LOC: HO.MAMMO 14:57
PROVIDERS: Visit Provider Nurse Practitioner Family
DX: Z12.31 Encounter for screening mammogram for malignant neoplasm of breast (principal)
CPT/HCPCS: 77063; 77067

== ENCOUNTER → 2025-01-08 15:00 | Outpatient (BNV) | payer MEDICAID, SELFPAY | PROVIDERS: Visit Provider Internal Medicine | DX: Z12.31 Encounter for screening mammogram for malignant neoplasm of breast (principal) | CPT/HCPCS: 77063; 77067 ==